=== PATIENT | male | born 1940 ===

== ENCOUNTER 2016-03-05 06:44 | Day surgery (SDC) | payer MEDICARE, OTHER ==
[2016-03-05] MEDS ORDERED: ACETAMINOPHEN 325 MG ONE (06:56)
[2016-03-05] MEDS ORDERED: LIDOCAINE HCL 1% MPF SOL ONE (07:07)
[2016-03-05] MEDS ORDERED: TRYPAN BLUE 0.5 ML SOL IO ONE (07:07)
[2016-03-05] MEDS ORDERED: BSS W/ 0.25MG P.F. EPI 1 BOTTLE ONE (07:07)
[2016-03-05] MEDS ORDERED: POVIDONE IODINE 5% SOL ONE (07:07)
[2016-03-05] MEDS: PHENYLEPHRINE HCL 10% OPHTHAL SOL ONE ×2 (07:14→07:27)
[2016-03-05] MEDS: PROPARACAINE HCL 0.5% OPHTHALMIC SOL ONE ×3 (07:14→08:23)
[2016-03-05] MEDS: CYCLOPENTOLATE 1% SOL ONE ×2 (07:14→07:27)
[2016-03-05] MEDS: BESIFLOXACIN HCL LEFTEYE ONE ×2 (07:15→07:28)
[2016-03-05] MEDS: KETOROLAC 0.5% OPTH 60 DROP SOL ONE ×2 (07:15→07:27)
[2016-03-05] MEDS ORDERED: FENTANYL CITRATE 50 MCG/ML SOL ONE (07:40)
[2016-03-05] MEDS ORDERED: MIDAZOLAM 2 MG/2 ML SOL ONE (07:40)
[2016-03-05] MEDS ORDERED: ACETAZOLAMIDE 500 MG CER ONE (08:57)
[2016-03-05] MEDS ORDERED: BESIFLOXACIN HCL LEFTEYE ONE (08:57)
[2016-03-05 09:23] VITALS: BP 143/64; PULSE 50; RESP 20; TEMP 97; O2SAT 98
== END 2016-03-05 09:40 | disposition home or self-care (01) | DRG 125 ==
LOC: SURG 06:44
PROVIDERS: ATTEND Ophthalmology
DX: H25.9 Unspecified age-related cataract (principal); H21.81 Floppy iris syndrome
CPT/HCPCS: J2250; J3010

== ENCOUNTER 2018-05-07 00:18 | Emergency (ER) | payer MEDICARE, BC, OTHER ==
[2018-05-07] MEDS ORDERED: ASPIRIN 81 MG CHEWABLE CTB ONE (00:21)
[2018-05-07] MEDS ORDERED: SODIUM CHLORIDE 0.9% FLUSH 10 ML SOL IV PRN (00:21)
[2018-05-07] MEDS ORDERED: ASPIRIN 81 MG CHEWABLE CTB PO STA (00:21)
[2018-05-07] MEDS: NITROGLYCERIN 0.4 MG TAB SL PRN ×3 (00:27→01:19)
[2018-05-07] MEDS ORDERED: NITROGLYCERIN 0.4 MG TAB SL ONE (00:27)
[2018-05-07 00:37] LABS: BASOPHILS % (AUTO) 1 % (0-3); EOSINOPHILS % (AUTO) 3 % (0-9); HEMATOCRIT 31 % (39-53); HEMOGLOBIN 10.4 gm/dl (13.5-17.7); LYMPHOCYTES % (AUTO) 17.1 % (10-50); MEAN CORPUSCULAR HEMOGLOBIN 28.6 pg (27.0-32.0); MEAN CORPUSCULAR HGB CONC 33.7 gm/dl (32.0-36.0); MEAN CORPUSCULAR VOLUME 85 fL (80-100); MONOCYTES % (AUTO) 10.4 % (0-12); NEUTROPHILS % (AUTO) 68.7 % (37-80)
[2018-05-07 00:46] LABS: CALCIUM 7.3 mg/dl (8.5-10.1); CARBON DIOXIDE 19.1 mEq/L (21-32); CREATININE 1.9 mg/dl (0.80-1.30); POTASSIUM 4.2 mMol/L (3.5-5.1); TROP I 8.274 ng/ml (0.000-0.056)
[2018-05-07 00:54] LABS: INR 1.09 (0.86-1.12)
[2018-05-07] MEDS ORDERED: HEPARIN SODIUM 5000 U/ML SOL IV ONE (01:04)
[2018-05-07] MEDS ORDERED: HEPARIN SODIUM 5000 U/ML SOL ONE ×2 (01:05→01:06)
[2018-05-07] MEDS ORDERED: HEPARIN PREMIX 25,000 U/250 ML SOL IV SCH (01:15)
[2018-05-07 01:23] VITALS: TEMP 97.8
[2018-05-07 01:25] VITALS: O2SAT 100
[2018-05-07 02:02] VITALS: BP 117/60; PULSE 72; RESP 22
== END 2018-05-07 01:39 | disposition short-term general hospital (02) | DRG 282 ==
LOC: ED 00:18
DX: I21.3 ST elevation (STEMI) myocardial infarction of unspecified site (principal); R07.9 Chest pain, unspecified; R07.89 Other chest pain; R06.02 Shortness of breath; E11.9 Type 2 diabetes mellitus without complications
CPT/HCPCS: 71045; 80048; 82550; 84484; 85025; 85610; 85730; 93005; 96365; 96374; 99284; 99291; J1644; A9270-GY

== ENCOUNTER 2018-05-20 20:13 | Inpatient (IN) | payer MEDICARE, BC, OTHER ==
[2018-05-20] MEDS ORDERED: ALBUTEROL/IPRATROPIUM 1 VIAL SOL ONE (20:16)
[2018-05-20] MEDS ORDERED: FUROSEMIDE 40 MG SOL IV ONE ×2 (20:20→21:05)
[2018-05-20] MEDS ORDERED: ALBUTEROL/IPRATROPIUM 1 VIAL SOL INH ONE (20:20)
[2018-05-20] MEDS ORDERED: ASPIRIN 81 MG CHEWABLE CTB PO STA (20:21)
[2018-05-20] MEDS: NITROGLYCERIN 0.4 MG TAB SL PRN ×3 (20:26→20:41)
[2018-05-20] MEDS ORDERED: NITROGLYCERIN 0.4 MG TAB SL ONE (20:26)
[2018-05-20] MEDS ORDERED: FUROSEMIDE 40 MG SOL ONE ×2 (20:26→21:09)
[2018-05-20 20:35] LABS: BASOPHILS % (AUTO) 1 % (0-3); EOSINOPHILS % (AUTO) 2 % (0-9); HEMATOCRIT 32 % (39-53); LYMPHOCYTES % (AUTO) 28.9 % (10-50); MEAN CORPUSCULAR HEMOGLOBIN 29.2 pg (27.0-32.0); MEAN CORPUSCULAR HGB CONC 30.9 gm/dl (32.0-36.0); MEAN CORPUSCULAR VOLUME 94 fL (80-100); MONOCYTES % (AUTO) 1.2 % (0-12); NEUTROPHILS % (AUTO) 67.1 % (37-80)
[2018-05-20 20:41] LABS: CALCIUM 7.7 mg/dl (8.5-10.1); CARBON DIOXIDE 18.6 mEq/L (21-32); CREATININE 1.61 mg/dl (0.80-1.30); POTASSIUM 4.7 mMol/L (3.5-5.1); TROP I 0.303 ng/ml (0.000-0.056)
[2018-05-20 20:44] LABS: INR 1.12 (0.86-1.12)
[2018-05-20] MEDS: SODIUM CHLORIDE 0.9% FLUSH 10 ML SOL IV PRN (21:26)
[2018-05-20] MEDS ORDERED: APAP/CODEINE 1 EACH TABLET PO PRN (21:27)
[2018-05-20] MEDS ORDERED: FUROSEMIDE 40 MG SOL IV SCH (21:30)
[2018-05-20] MEDS: TEMAZEPAM 15MG 15 MG CAP PO PRN (23:35)
[2018-05-21] MEDS: SODIUM CHLORIDE 0.9% FLUSH 10 ML SOL IV PRN ×2 (03:28→20:18)
[2018-05-21] MEDS: FUROSEMIDE 40 MG SOL IV SCH ×4 (03:28→20:20)
[2018-05-21 07:49] LABS: CALCIUM 7.4 mg/dl (8.5-10.1); CARBON DIOXIDE 22.9 mEq/L (21-32); CREATININE 1.66 mg/dl (0.80-1.30); POTASSIUM 4.5 mMol/L (3.5-5.1); TROP I 0.326 ng/ml (0.000-0.056)
[2018-05-21] MEDS ORDERED: LOSARTAN POTASSIUM 50 MG TAB PO SCH (09:00)
[2018-05-21] MEDS ORDERED: CHLORTHALIDONE PO SCH (09:00)
[2018-05-21] MEDS: METFORMIN HYDROCHLORIDE 500 MG TAB PO SCH ×2 (09:51→20:13)
[2018-05-21] MEDS: METOPROLOL TARTRATE 25 MG TAB PO SCH (09:51)
[2018-05-21] MEDS: NOVOLOG 70/30 FLEXPEN SC SCH ×2 (10:45→18:33)
[2018-05-21] MEDS: TRIAMCINOLONE 0.1% CREAM CRE TOP SCH ×2 (10:47→20:13)
[2018-05-21] MEDS: NOVOLOG FLEXPEN SC SCH ×3 (12:05→21:07)
[2018-05-21] MEDS: SODIUM CHLORIDE 0.9% FLUSH 10 ML SOL IV SCH ×2 (15:50→23:11)
[2018-05-21] MEDS: ATORVASTATIN 10 MG TAB PO SCH (20:13)
[2018-05-21] MEDS: TEMAZEPAM 15MG 15 MG CAP PO PRN (20:15)
[2018-05-22] MEDS: FUROSEMIDE 40 MG SOL IV SCH (03:21)
[2018-05-22] MEDS: SODIUM CHLORIDE 0.9% FLUSH 10 ML SOL IV SCH ×4 (03:22→20:18)
[2018-05-22 07:26] LABS: CALCIUM 7.6 mg/dl (8.5-10.1); CARBON DIOXIDE 25.2 mEq/L (21-32); CREATININE 1.85 mg/dl (0.80-1.30); POTASSIUM 3.7 mMol/L (3.5-5.1)
[2018-05-22] MEDS: NOVOLOG FLEXPEN SC SCH ×4 (08:26→20:14)
[2018-05-22] MEDS: TRIAMCINOLONE 0.1% CREAM CRE TOP SCH ×2 (09:59→20:04)
[2018-05-22] MEDS: METFORMIN HYDROCHLORIDE 500 MG TAB PO SCH ×2 (09:59→20:06)
[2018-05-22] MEDS: FUROSEMIDE 40 MG TAB PO SCH ×3 (09:59→14:16)
[2018-05-22] MEDS: METOPROLOL TARTRATE 25 MG TAB PO SCH (09:59)
[2018-05-22] MEDS: NOVOLOG 70/30 FLEXPEN SC SCH ×2 (10:02→17:29)
[2018-05-22] MEDS: ATORVASTATIN 10 MG TAB PO SCH (20:05)
[2018-05-22] MEDS: TEMAZEPAM 15MG 15 MG CAP PO PRN (20:26)
[2018-05-23] MEDS: SODIUM CHLORIDE 0.9% FLUSH 10 ML SOL IV SCH ×2 (07:01→07:52)
[2018-05-23 07:31] LABS: BASOPHILS % (AUTO) 1 % (0-3); EOSINOPHILS % (AUTO) 4 % (0-9); HEMATOCRIT 31 % (39-53); HEMOGLOBIN 9.8 gm/dl (13.5-17.7); LYMPHOCYTES % (AUTO) 16.8 % (10-50); MEAN CORPUSCULAR HEMOGLOBIN 29.6 pg (27.0-32.0); MEAN CORPUSCULAR HGB CONC 32.2 gm/dl (32.0-36.0); MEAN CORPUSCULAR VOLUME 92 fL (80-100); MONOCYTES % (AUTO) 7.4 % (0-12); NEUTROPHILS % (AUTO) 70.4 % (37-80)
[2018-05-23 07:40] LABS: CALCIUM 7.5 mg/dl (8.5-10.1); CARBON DIOXIDE 26.2 mEq/L (21-32); CREATININE 1.71 mg/dl (0.80-1.30); POTASSIUM 3.7 mMol/L (3.5-5.1)
[2018-05-23 08:12] VITALS: BP 125/54; PULSE 68; RESP 24; TEMP 98; O2SAT 98
[2018-05-23] MEDS: NOVOLOG FLEXPEN SC SCH (08:13)
[2018-05-23] MEDS: FUROSEMIDE 40 MG TAB PO SCH (08:48)
[2018-05-23] MEDS: METOPROLOL TARTRATE 25 MG TAB PO SCH (08:49)
[2018-05-23] MEDS: METFORMIN HYDROCHLORIDE 500 MG TAB PO SCH (08:49)
[2018-05-23] MEDS: NOVOLOG 70/30 FLEXPEN SC SCH (08:50)
[2018-05-23] MEDS: TRIAMCINOLONE 0.1% CREAM CRE TOP SCH (08:56)
== END 2018-05-23 11:05 | disposition home or self-care (01) | DRG 189 ==
LOC: ED 20:13 → ACUTE CARE 21:16
PROVIDERS: ADMIT Family Medicine; ATTEND Family Medicine
DX: J81.0 Acute pulmonary edema (principal); E11.9 Type 2 diabetes mellitus without complications; I10 Essential (primary) hypertension; E78.5 Hyperlipidemia, unspecified; K29.70 Gastritis, unspecified, without bleeding; R06.02 Shortness of breath; R07.9 Chest pain, unspecified; I50.20 Unspecified systolic (congestive) heart failure; N18.3 Chronic kidney disease, stage 3 (moderate); Z79.4 Long term (current) use of insulin; E11.22 Type 2 diabetes mellitus with diabetic chronic kidney disease; Z95.1 Presence of aortocoronary bypass graft; L30.9 Dermatitis, unspecified; L98.422 Non-pressure chronic ulcer of back with fat layer exposed; R00.0 Tachycardia, unspecified
CPT/HCPCS: 36415; 71045; 80048; 82550; 82962; 83880; 84484; 85025; 85378; 85610; 85730; 93005; 93012; 96374; 99222; 99231; 99284; J1815; J1940; A4450; A6232; A6402; A9270; A9270-GY